=== PATIENT | female | born 1950 | race Caucasian/White ===

== ENCOUNTER 2018-09-21 10:30 | Inpatient (IN) | payer MEDICARE ==
[2018-09-29] MEDS ORDERED: Midazolam HCl 2 mg/2 ml Vial ONE ×2 (06:40→07:30)
[2018-09-29] MEDS ORDERED: Morphine 2 MG/ML SYRINGE ONE ×3 (06:40→10:45)
[2018-09-29] MEDS ORDERED: Acetaminophen 325 MG TAB PO PRN (06:58)
[2018-09-29] MEDS ORDERED: Bisacodyl 10 MG SUPP PR PRN (06:58)
[2018-09-29] MEDS ORDERED: traMADol HCl 50 MG TAB PO PRN ×3 (06:58→08:17)
[2018-09-29] MEDS ORDERED: HYDROcodone/Acetaminophen 10/325 mg Tablet PO PRN ×3 (06:58→08:17)
[2018-09-29] MEDS ORDERED: Ondansetron ODT 4 MG TAB PO PRN (06:58)
[2018-09-29] MEDS ORDERED: CEFAZOLIN 2 GM/50 ML BAG ONE (07:05)
[2018-09-29] MEDS ORDERED: Sodium Chloride 0.9% 100 ML ONE (07:05)
[2018-09-29] MEDS ORDERED: Aspirin 81 mg Enteric Coated Tablet PO SCH (07:15)
[2018-09-29] MEDS ORDERED: Morphine 4 MG/ML VIAL ONE ×2 (07:30→10:06)
[2018-09-29] MEDS ORDERED: Vancomycin HCl 1.5 GM in Sodium Chloride 0.9% 250 ML 300 ML IVPB SCH (07:30)
[2018-09-29] MEDS ORDERED: Promethazine HCl 25 MG/ML VIAL IM PRN ×2 (08:17→08:42)
[2018-09-29] MEDS ORDERED: Zolpidem Tartrate 5 MG TAB PO PRN (08:17)
[2018-09-29] MEDS ORDERED: Ondansetron PF 4 MG/2 ML Vial IVP PRN (08:17)
[2018-09-29] MEDS ORDERED: Ropivacaine 0.2% 550 ML 550 ML NERVE BLCK SCH (08:17)
[2018-09-29] MEDS ORDERED: Ketorolac Tromethamine 30 MG/ML VIAL IVP PRN (08:17)
[2018-09-29] MEDS ORDERED: Morphine 4 MG/ML VIAL SLOW IVP PRN (08:20)
[2018-09-29] MEDS ORDERED: Promethazine HCl 25 MG/ML VIAL SLOW IVP PRN (08:42)
[2018-09-29] MEDS ORDERED: PACU-Morphine 4MG/ML VIAL SLOW IVP PRN (08:42)
[2018-09-29] MEDS ORDERED: Ondansetron HCl/PF 4 MG/2 ML Vial IVP PRN (08:42)
[2018-09-29] MEDS ORDERED: Morphine 10 MG/ML VIAL ONE (08:44)
[2018-09-29] MEDS ORDERED: CeleCOXIB 100 MG CAP PO SCH (09:00)
[2018-09-29] MEDS ORDERED: CELECOXIB PO SCH (09:00)
[2018-09-29] MEDS ORDERED: (Phentermine Hcl [Adipex-P] 37.5 MG) PO SCH (09:00)
--- NOTE | 2018-09-29 10:19 | OP ---
DATE OF PROCEDURE: 09/29/2018 PREOPERATIVE DIAGNOSIS: Chronic rotator cuff arthropathy, right shoulder. POSTOPERATIVE DIAGNOSIS: Chronic rotator cuff arthropathy, right shoulder. SURGEON: Ezekiel Loaiza M.D. CHEMICAL ANALYTICAL SAMPLER: Mynor Monroy PA-C. BLOOD LOSS: 200 mL. SPECIMEN: None. DRAINS: None. IMPLANTS: Implants were a Tornier right medical baseplate 29, glenosphere 29 x 36, stem 4B, polyethy harlan 36 mm x 6 mm high offset standard tray. Screws used anterior 38 mm, posterior 20 mm, superior 23 mm and inferior 23 mm. COMPLICATIONS: None. NARRATIVE REPORT: After appropriate consent was obtained, the patient was placed in the beach chair position with a roll under the right shoulder. The right shoulder was prepped and draped in the usua l sterile fashion. I made a standard deltopectoral approach. Cephalic vein was taken medially and p reserved, branches were coagulated. The deltopectoral interval was opened. The biceps tendon was id entified. The tendon was frayed and in poor condition. I removed the biceps from the groove and tag ged it for later repair. It was eventually tagged to soft tissues using #5 Ethibond suture. The sub scapularis was taken down. Bone spurs were removed. Subscapularis was tacked for later repair. Usi ng the Tornier guide, a standard cut was performed. I then exposed the glenoid circumferentially. I drilled a central hole and reamed the glenoid. The glenoid baseplate was deployed without difficult y and screws were inserted in the usual technique. Glenosphere was docked without difficulty after i rrigation. Attention was turned to the humerus, which was opened with an acetabular and a shaft ream er to the appropriate size. Trial implant was placed and a trial reduction was performed. Trials we re removed and irrigation performed. I placed drill holes through the lesser tuberosity to repair th e subscapularis. Permanent implant was impacted into place. The shoulder was reduced and confirmed to have good stability throughout a range of motion. Subscapularis was tacked down with a cottony Da cron suture. Additional irrigation was performed. The deltopectoral interval was repaired with #2-0 Vicryl and subcutaneous tissue closed with 2-0 Vicryl. The skin was closed with trish and a steri le dressing was applied. IMPLANTS USED: Tornier 12 mm stem with a 9 mm polyethylene bushing and a standard baseplate and 36 glenosphere.
[2018-09-29] MEDS ORDERED: Bupivacaine HCl 0.5%/Epinephrine 1:200,000/PF 30 ml Vial ONE (11:36)
[2018-09-29] MEDS ORDERED: Ropivacaine 0.2% HCl/PF (40 MG/20 ML VIAL) ONE (11:36)
[2018-09-29] MEDS ORDERED: PHENYLEPHRINE-NS 100 MCG/ML 10 ML SYRINGE ONE (12:48)
[2018-09-29] MEDS ORDERED: Ondansetron PF 4 MG/2 ML Vial ONE (12:48)
[2018-09-29] MEDS ORDERED: PROPOFOL 200 MG/20 ML VIAL ONE (12:48)
[2018-09-29] MEDS ORDERED: Glycopyrrolate 0.2 MG/ML 5 ML SYRINGE ONE (12:48)
[2018-09-29] MEDS ORDERED: Ketorolac Tromethamine 30 MG/ML VIAL ONE (12:48)
[2018-09-29] MEDS: Gabapentin 100 MG CAP PO SCH ×3 (18:56→22:25)
[2018-09-29] MEDS: CEFAZOLIN 2 GM/50 ML BAG IVPB SCH ×2 (18:56→23:23)
[2018-09-29] MEDS: CeleCOXIB 100 MG CAP PO SCH ×2 (18:57→22:24)
[2018-09-29] MEDS: Dextrose 5 %-0.45 % NaCl 1,000 ML IV SCH ×2 (18:57→22:42)
[2018-09-29 19:36] VITALS: BMI 34.7
[2018-09-29] MEDS: Bupropion 150 MG SR TAB PO SCH (22:24)
[2018-09-29] MEDS: Levothyroxine Sodium 125 MCG TAB PO SCH (22:25)
[2018-09-29] MEDS: Furosemide 20 MG TAB PO SCH ×2 (22:25→22:29)
[2018-09-29] MEDS: Donepezil HCl 5 MG TAB PO SCH (22:25)
[2018-09-30] MEDS ORDERED: CEFAZOLIN 2 GM/50 ML BAG IVPB SCH (03:00)
[2018-09-30] MEDS: Gabapentin 100 MG CAP PO SCH ×3 (08:32→21:40)
[2018-09-30] MEDS: CeleCOXIB 100 MG CAP PO SCH ×2 (08:32→21:39)
[2018-09-30] MEDS: HYDROcodone/Acetaminophen 10/325 mg Tablet PO PRN ×3 (08:33→19:24)
[2018-09-30] MEDS: Dextrose 5 %-0.45 % NaCl 1,000 ML IV SCH (15:49)
[2018-09-30] MEDS: diphenhydrAMINE 25 MG CAP PO PRN ×2 (17:43→21:39)
[2018-09-30] MEDS: Bupropion 150 MG SR TAB PO SCH (21:40)
[2018-09-30] MEDS: Donepezil HCl 5 MG TAB PO SCH (21:40)
[2018-09-30] MEDS: Levothyroxine Sodium 125 MCG TAB PO SCH (21:41)
[2018-09-30] MEDS: traMADol HCl 50 MG TAB PO PRN (21:51)
[2018-10-01] MEDS: Dextrose 5 %-0.45 % NaCl 1,000 ML IV SCH (02:24)
[2018-10-01] MEDS: CeleCOXIB 100 MG CAP PO SCH (08:22)
[2018-10-01] MEDS: HYDROcodone/Acetaminophen 10/325 mg Tablet PO PRN ×2 (08:23→13:06)
[2018-10-01] MEDS: Furosemide 20 MG TAB PO SCH (08:23)
[2018-10-01] MEDS: Gabapentin 100 MG CAP PO SCH (08:23)
[2018-10-01 12:04] VITALS: BP 113/66; TEMP 97.5
[2018-10-01] MEDS: diphenhydrAMINE 25 MG CAP PO PRN (12:07)
[2018-10-01] MEDS: traMADol HCl 50 MG TAB PO PRN (13:06)
[2018-10-01] MEDS ORDERED: Aspirin 81 mg Enteric Coated Tablet PO SCH (21:00)
--- NOTE | 2018-10-03 11:54 | DIS ---
DATE OF ADMISSION: 09/29/2018 DATE OF DISCHARGE: 10/01/2018 PREOPERATIVE DIAGNOSIS: Right degenerative joint disease, shoulder. DISCHARGE DIAGNOSIS: Right degenerative joint disease, shoulder. PROCEDURE: The patient underwent a right reverse shoulder replacement. HOSPITAL COURSE: Hospital stay was unremarkable. She was admitted to [place] [id number] where she worked with staff, physical therapy, occupational therapy, and progressed quite well. By postop day 2, she was r batsheva to discharge home. DISCHARGE CONDITION: Good/stable. DISPOSITION: Home with family. FOLLOWUP: Followup would be in 10-14 days, sooner if there are problems or concerns. DISCHARGE MEDICATIONS: Given with usage instructions. Mynor Monroy PA-C, dictating for Ezekiel Loaiza M.D.
== END 2018-10-01 13:20 | disposition home or self-care (01) | DRG 483 ==
LOC: SURG A 09-29 05:45 → SJJU 09-29 11:22
PROVIDERS: ADMIT Orthopaedic Surgery; ATTEND Orthopaedic Surgery
PROC: 0RRJ00Z Replacement of Right Shoulder Joint with Reverse Ball and Socket Synthetic Substitute, Open Approach (ICD-10-PCS; principal; 2018-09-29)
DX: M75.101 Unspecified rotator cuff tear or rupture of right shoulder, not specified as traumatic (principal); E03.9 Hypothyroidism, unspecified; F41.8 Other specified anxiety disorders; J44.9 Chronic obstructive pulmonary disease, unspecified; I69.398 Other sequelae of cerebral infarction; R13.10 Dysphagia, unspecified; G47.30 Sleep apnea, unspecified; I25.2 Old myocardial infarction; Z79.02 Long term (current) use of antithrombotics/antiplatelets; Z88.2 Allergy status to sulfonamides; Z88.8 Allergy status to other drugs, medicaments and biological substances
CPT/HCPCS: A4306; G8984-GP-CK; G8985-GP-CK; G8987-GO-CK; G8988-GO-CJ; J0670; J1885; J2250; J2270; J2405; J2704; J2795; J3370; J7050

== ENCOUNTER 2018-09-21 10:32 | Outpatient (CLI) | payer MEDICARE ==
[2018-09-21 12:38] LABS: #Basophils 0.1 thou/uL (0.0-0.2); #Eosinphils 0.1 thou/uL (0.0-0.7); #Lymphocytes 1.8 thou/uL (1.20-3.40); #Monocytes 0.6 thou/uL (0.11-0.59); #Neutrophils 3.4 thou/uL (1.40-6.50); %Basophils 1.2 % (0.0-1.0); %Eosinophils 2.1 % (0.0-10.0); %Monocytes 9.4 % (0.0-10.0); %Neutrophils 57.3 % (42.0-75.0); Hemoglobin 12.6 g/dL (12.0-16.0); Mean Corpuscular HGB CONC 32.8 g/dL (32.0-36.0); Mean Corpuscular Hemoglobin 30.2 pg (27.0-31.0); Mean Corpuscular Volume 92.1 fL (78.0-98.0); Mean Platelet Volume 7.2 fL (7.4-10.4); Platelet Count 253 thou/uL (130-400); Red Blood Cell (RBC) Count 4.17 mill/uL (4.20-5.40); White Blood Cell (WBC) Count 5.9 thou/uL (4.8-10.8)
--- NOTE | 2018-09-21 12:54 | RAD ---
TWO VIEWS CHEST: Date: 09-21-18 Provided Clinical History: Pre op. FINDINGS: Cardiac silhouette is upper limits of normal in size. Lungs appear clear. No pleural fluid or pneumot horax apparent. IMPRESSION: No evidence for an acute cardiopulmonary process. POS: [facility]
[2018-09-21 13:17] LABS: Anion Gap 12 mmol/L (10-20); BUN (Urea Nitrogen) 12 mg/dL (9.8-20.1); Calc. Creatinine Clearance 0 mL/min (70-130); Calcium 9.6 mg/dL (7.8-10.44); Carbon Dioxide 28 mmol/L (23-31); Chloride 103 mmol/L (98-107); Estimated GFR-MDRD 70; Glucose 112 mg/dL (80-115); Potassium 3.8 mmol/L (3.5-5.1); Sodium 139 mmol/L (136-145)
== END 2018-09-21 10:33 | disposition home or self-care (01) ==
LOC: LABBT 10:32
PROVIDERS: ATTEND Orthopaedic Surgery
DX: Z01.818 Encounter for other preprocedural examination (principal); M75.101 Unspecified rotator cuff tear or rupture of right shoulder, not specified as traumatic
CPT/HCPCS: 71046; 80048; 85025